=== PATIENT | male | born 1950 | race Caucasian/White ===

== ENCOUNTER 2016-09-26 09:24 | Emergency (ER) | payer BC ==
[2016-09-26 10:25] LABS: BASO # 0.1 K/mm3 (0.0-0.2); BASO % 3.4 % (0.0-1.0); EOS % 1.6 % (0.0-3.0); LARGE UNSTAINED CELL # 0.1 K/mm3 (0.0-0.4); LARGE UNSTAINED CELL % 3.9 % (0.0-4.0); LYMPH # 0.4 K/mm3 (1.5-4.5); LYMPH % 10.6 % (24.0-44.0); MEAN CORPUSCULAR HEMOGLOBIN 30.7 pg (27.0-33.0); MEAN CORPUSCULAR HGB CONC 33.5 g/dl (32.0-36.5); MEAN CORPUSCULAR VOLUME 91.7 fl (80.0-96.0); MONO # 0.4 K/mm3 (0.0-0.8); MONO % 13.1 % (0.0-5.0); NEUTROPHILS % 67.4 % (36.0-66.0); PLATELET COUNT, AUTOMATED 330 k/mm3 (150-450); RED CELL DISTRIBUTION WIDTH 14.1 % (11.5-14.5)
[2016-09-26 10:47] LABS: ANION GAP 9 MEQ/L (8-16); BLOOD UREA NITROGEN 14 MG/DL (7-18); CARBON DIOXIDE LEVEL 26 MEQ/L (21-32); CHLORIDE LEVEL 104 MEQ/L (98-107); CREATININE FOR GFR 0.79 MG/DL (0.70-1.30); GLOMERULAR FILTRATION RATE > 60.0 (>49); GLUCOSE, FASTING 116 MG/DL (80-110); POTASSIUM SERUM 3.9 MEQ/L (3.5-5.1); SODIUM LEVEL 139 MEQ/L (136-145)
--- NOTE | 2016-09-26 11:04 | REP ---
Chest two views HISTORY: Cough Comparison: 12/10/2008 The lungs are clear. The heart is normal in size. The pulmonary vasculature is normal in appearance. The bony structure is intact. IMPRESSION: No acute disease. Signed by Vasquez Dinh MD 09/26/2016 10:55 A
--- NOTE | 2016-09-26 11:26 | REP ---
RIGHT ARM VENOUS DOPPLER: 09/26/2016 INDICATION: Recent IV in right arm, exclude DVT. Color flow Doppler spectral wave Doppler and grayscale imaging were used to evaluate the deep veins at the right subclavian, axillary, basilic, paired brachial and cephalic venous levels, with and without compression. There is no visualized deep venous thrombosis within the right upper extremity. Superficial thrombus is seen at an area of erythema within the right forearm . This long segmental area of superficial vein demonstrated absence of color flow/perfusion , and was noncompressible. IMPRESSION: 1. Superficial venous thrombosis is noted in long segment of superficial vein within the right forearm within the area of erythema. 2. The deep veins within the right upper extremity are without evidence of deep venous thrombosis. Signed by Gabrielle Phelps MD 09/26/2016 09:59 P
--- NOTE | 2016-09-26 11:51 | EDDOCDS ---
Nurse's Notes [facility] Name: Arcadio Corley Age: 66 yrs Sex: Male : 1950 Arrival Date: 09/26/2016 Time: 09:24 Bed I7 / 29 Private MD: Edward Marrufo Diagnosis: Acute sinusitis, unspecified;Acute embolism and thrombosis of other specified veins-superficial vein right forearm Presentation: 09/26 09:34 Presenting complaint: Patient states: Chemo last week reports feeling ill since Saturday, mlb1 body aches productive cough and sinus pressure also reports bruising discoloring to veins in right arm denies pain. Adult Sepsis Screening: The patient does not have new or worsening altered mentation. Patient's respiratory rate is less than 22. Systolic blood pressure is greater than 100. Patient has a qSOFA score of 0- Negative Sepsis Screen. Suicide/Homicide risk assessment- the patient denies having any suicidal and/or homicidal ideations and does not present with any other emotional, behavioral or mental health complaints. Status: Patient is not a dean of student services or dependent. Transition of care: patient was not received from another setting of care. 09:34 Acuity: VALERIA Level 3 mlb1 09:34 Method Of Arrival: Walkin/Carried/Asstd mlb1 Triage Assessment: 09:37 General: Appears in no apparent distress, Behavior is appropriate for age, cooperative. mlb1 Pain: Denies pain. Pt Declines HIV testing. Historical: - Allergies: no known allergies; - Home Meds: 1. Lovaza 1 gram oral cap 4 caps once daily 2. simvastatin 10 mg oral tab once daily 3. Benicar oral 50 mg oral once daily - PMHx: High Cholesterol; Cancer, Prostate; Hypertension; - PSHx: left shoulder; Sinus Surgery; Orthopedic Surgery; - Social history: Smoking status: Patient states former smoker of tobacco. No barriers to communication noted, The patient speaks fluent Hebrew, Speaks appropriately for age. - Family history: Not pertinent. - : The pt / caregiver states he / she is not on anticoagulants. Home medication list is obtained from the patient. - Exposure Risk Screening:: None identified. Screenin:46 Screening information is obtained from the patient. Fall risk: No risks identified. dsf Assistance ADL's: requires no assistance with activities of daily living. Abuse/DV Screen: The patient / caregiver reports he/she is: not in a situation that causes fear, pain or injury. Nutritional screening: No deficits noted. Advance Directives: Currently, there is no health care proxy. home support is adequate. Assessment: 10:11 Adult Sepsis Screening: The patient does not have new or worsening altered mentation. dsf Patient's respiratory rate is less than 22. Systolic blood pressure is greater than 100. Patient has a qSOFA score of 0- Negative Sepsis Screen. General: Appears in no apparent distress, Behavior is appropriate for age, cooperative. Pain: Denies pain. Neurological: Level of Consciousness is awake, alert, Oriented to person, place, time. Cardiovascular: No deficits noted. Respiratory: No deficits noted. Derm: Skin is pink, warm & dry. purplish reddish chow going up patients right forearm. pt denies pain or swelling. Musculoskeletal: Circulation, motion, and sensation intact. 11:08 General: Appears in no apparent distress, comfortable, Behavior is appropriate for age, kc3 cooperative. Pain: Denies pain. Neurological: Level of Consciousness is awake, alert, obeys commands, Oriented to person, place, time. Respiratory: Respiratory effort is even, unlabored, Respiratory pattern is regular, symmetrical. Derm: Skin is pink, warm & dry. 11:46 General: Appears in no apparent distress, Behavior is appropriate for age, cooperative. dsf Pain: Denies pain. Neurological: Level of Consciousness is awake, alert. Cardiovascular: Capillary refill < 3 seconds. Respiratory: Airway is patent Respiratory effort is even, unlabored, Respiratory pattern is regular, symmetrical. Derm: Skin is pink, warm & dry. Vital Signs: 09:26 BP 142 / 62; Pulse 90; Resp 18 S; Temp 96.7(O); Pulse Ox 98% on R/A; Weight 94.8 kg dd6 (R); Height 6 ft. 0 in. (182.88 cm) (R); 11:48 Pulse 87; Resp 18; Temp 98.3(O); Pulse Ox 98% on R/A; Pain 0/10; dsf 11:50 BP 100 / 61 (man/); dsf 09:26 Body Mass Index 28.35 (94.80 kg, 182.88 cm) dd6 Vitals: 09:26 Log In Time: September 26, 2016 at 09:24. RN notified that patient meets Red Flag dd6 criteria. ED Course: 09:26 Patient visited by David Escobedo PCA. dd6 09:26 Edward Marrufo PA-C is Private Physician. dd6 09:26 Patient moved to Waiting dd6 09:34 Patient visited by Juan Rocha RN. mlb1 09:35 Triage Initiated mlb1 09:39 Patient visited by Juan Rocha RN. mlb1 09:41 [facility] Baptiste [facility] dt4 09:41 Lyric Ernst MD is Attending Physician. dt4 09:41 Patient visited by Milena Baptiste PA-C. dt4 09:41 Patient moved to I dt4 10:07 Patient moved to [facility] br3 10:11 -Blood Culture Sent. dsf 10:11 Lactic Acid (Casarez tube on ice) Sent. dsf 10:11 Basic Metabolic Profile Sent. dsf 10:11 CBC with Diff Sent. dsf 10:12 Patient visited by Melissa Ching RN. dsf 10:12 Inserted saline lock: 20 gauge in left hand The patient tolerated the procedure well. dsf 10:34 Patient moved to br3 10:36 BLOOD CULTURES Sent. dsf 11:08 Patient visited by Gini Villarreal RN. kc3 11:08 -Influenza A&B Rapid Antigen - Nose Sent. kc3 11:10 Chest, 2 View (pa\E\lat) Returned. EDMS 11:46 Discontinued lock intact, bleeding controlled, pressure dressing applied, No dsf redness/swelling at site. No procedures done that require assistance. 11:47 The patient / caregiver is instructed regarding the plan of care and ED course. dsf Order Results: Lab Order: CBC with Diff; SPEC'M 09/26/16 09:57 Test: WHITE BLOOD COUNT; Value: 3.0; Range: 4.0-10.0; Abnormal: Below low normal; Units: K/mm3; Status: F Test: RED BLOOD COUNT; Value: 4.01; Range: 4.30-6.10; Abnormal: Below low normal; Units: M/mm3; Status: F Test: HEMOGLOBIN; Value: 12.3; Range: 14.0-18.0; Abnormal: Below low normal; Units: g/dl; Status: F Test: HEMATOCRIT; Value: 36.7; Range: 42.0-52.0; Abnormal: Below low normal; Units: %; Status: F Test: MEAN CORPUSCULAR VOLUME; Value: 91.7; Range: 80.0-96.0; Units: fl; Status: F Test: MEAN CORPUSCULAR HEMOGLOBIN; Value: 30.7; Range: 27.0-33.0; Units: pg; Status: F Test: MEAN CORPUSCULAR HGB CONC; Value: 33.5; Range: 32.0-36.5; Units: g/dl; Status: F Test: RED CELL DISTRIBUTION WIDTH; Value: 14.1; Range: 11.5-14.5; Units: %; Status: F Test: PLATELET COUNT, AUTOMATED; Value: 330; Range: 150-450; Units: k/mm3; Status: F Test: NEUTROPHILS %; Value: 67.4; Range: 36.0-66.0; Abnormal: Above high normal; Units: %; Status: F Test: LYMPH %; Value: 10.6; Range: 24.0-44.0; Abnormal: Below low normal; Units: %; Status: F Test: MONO %; Value: 13.1; Range: 0.0-5.0; Abnormal: Above high normal; Units: %; Status: F Test: EOS %; Value: 1.6; Range: 0.0-3.0; Units: %; Status: F Test: BASO %; Value: 3.4; Range: 0.0-1.0; Abnormal: Above high normal; Units: %; Status: F Test: LARGE UNSTAINED CELL %; Value: 3.9; Range: 0.0-4.0; Units: %; Status: F Test: NEUTROPHILS #; Value: 2.0; Range: 1.8-7.7; Units: K/mm3; Status: F Test: LYMPH #; Value: 0.4; Range: 1.5-4.5; Abnormal: Below low normal; Units: K/mm3; Status: F Test: MONO #; Value: 0.4; Range: 0.0-0.8; Units: K/mm3; Status: F Test: EOS #; Value: 0.0; Range: 0.0-0.50; Units: K/mm3; Status: F Test: BASO #; Value: 0.1; Range: 0.0-0.2; Units: K/mm3; Status: F Test: LARGE UNSTAINED CELL #; Value: 0.1; Range: 0.0-0.4; Units: K/mm3; Status: F Lab Order: Basic Metabolic Profile; SPEC'M 09/26/16 09:57 Test: GLUCOSE, FASTING; Value: 116; Range: 80-110; Abnormal: Above high normal; Units: MG/DL; Status: F Test: BLOOD UREA NITROGEN; Value: 14; Range: 7-18; Units: MG/DL; Status: F Test: CREATININE FOR GFR; Value: 0.79; Range: 0.70-1.30; Units: MG/DL; Status: F Test: GLOMERULAR FILTRATION RATE; Value: > 60.0; Range: >49; Status: F Test: SODIUM LEVEL; Value: 139; Range: 136-145; Units: MEQ/L; Status: F Test: POTASSIUM SERUM; Value: 3.9; Range: 3.5-5.1; Units: MEQ/L; Status: F Test: CHLORIDE LEVEL; Value: 104; Range: 98-107; Units: MEQ/L; Status: F Test: CARBON DIOXIDE LEVEL; Value: 26; Range: 21-32; Units: MEQ/L; Status: F Test: ANION GAP; Value: 9; Range: 8-16; Units: MEQ/L; Status: F Test: CALCIUM LEVEL; Value: 9.0; Range: 8.8-10.2; Units: MG/DL; Status: F Test Note: ; Units are mL/min/1.73 m2 Chronic Kidney Disease Staging per NKF: Stage I & II GFR >=60 Normal to Mildly Decreased Stage III GFR 30-59 Moderately Decreased Stage IV GFR 15-29 Severely Decreased Stage V GFR <15 Very Little GFR Left ESRD GFR <15 on ARTIST'S REPRESENTATIVE Lab Order: Lactic Acid (Casarez tube on ice); SPEC'09/26/16 09:57 Test: LACTIC ACID LEVEL, LACTATE; Value: 1.0; Range: 0.4-2.0; Units: MMOL/L; Status: F Lab Order: -Influenza A&B Rapid Antigen - Nose; SPEC'M 09/26/16 11:05 Test: INFLUENZA A RAPID SCR by ICA; Value: INFLUENZA A RESULTS NEGATIVE; Status: F Test: INFLUENZA A RAPID SCR by ICA; Value: Comments:; Status: F Test: INFLUENZA B RAPID SCR by ICA; Value: INFLUENZA B RESULTS NEGATIVE; Status: F Test Note: ; The Influenza test is a direct rapid immunoassay for the qualitative detection of Influenza viral antigen. Cell culture (Viral Culture) testing should be considered to confirm NEGATIVE results and to assist in detecting other viruses that can provide similar clinical symptoms. Please contact the lab within 24 hours ([phone]) if confirmatory testing is desired. Radiology Order: Chest, 2 View (pa\E\lat) Test: Chest, 2 View (pa\E\lat) REASON FOR EXAMINATION: body aches; Chest two views; ; HISTORY: Cough; ; Comparison: 12/10/2008; ; The lungs are clear. The heart is normal in size. The pulmonary vasculature is; normal in appearance. The bony structure is intact.; ; IMPRESSION: No acute disease.; ; ; Signed by; Vasquez Dinh MD 09/26/2016 10:55 A; Outcome: 11:39 Discharge ordered by Provider. dt4 11:47 Discharge Assessment: Patient awake, alert and oriented x 3. No cognitive and/or dsf functional deficits noted. Patient verbalized understanding of disposition instructions. patient administered narcotics - no. The following High Risk Discharge criteria are identified: None. Discharged to home ambulatory. Condition: stable. Discharge instructions given to patient, Instructed on discharge instructions, follow up and referral plans. medication usage, Demonstrated understanding of instructions, medications, Pt was receptive of discharge instructions/ teaching. Prescriptions given X 1. Ultrasound Study completed. Property sent home with patient. 11:51 Patient left the ED. dsf Signatures: Dispatcher [employer] EDMS Juan Rocha RN RN mlb1 David Escobedo, BRADLY FOLEY ARTIST dd6 Tayler Haines br3 Melissa Ching,RN RN dsf Milena Baptiste, PA-C PA-C dt4 Gini VillarrealRN RN kc3 Corrections: (The following items were deleted from the chart) 09:39 09:34 Presenting complaint: Patient states: Chemo last week reports feeling ill since mlb1 Saturday, body aches productive cough and sinus pressure mlb1 MTDD
--- NOTE | 2016-09-26 11:51 | EDDOCDS ---
Physician Documentation [facility] Name: Arcadio Corley Age: 66 yrs Sex: Male : 1950 Arrival Date: 09/26/2016 Time: 09:24 Bed I7 / 29 Private MD: Edward Marrufo Disposition: 09/26/16 11:39 Discharged to Home/Self Care. Impression: Acute sinusitis, unspecified, Acute embolism and thrombosis of other specified veins - superficial vein right forearm. - Condition is Stable. - Discharge Instructions: Sinusitis, Adult, Venous Thromboembolism. - Prescriptions for Augmentin 875- 125 mg Oral Tablet - take 1 tablet by ORAL route every 12 hours for 10 days; 20 tablet. - Medication Reconciliation, Local Pharmacy Hours form. - Follow up: Emergency Department; When: As needed; Reason: Worsening of conditions. Follow up: Private Physician; When: 2 - 3 days; Reason: Wound/Symptom Recheck, Recheck today's complaints, Continuance of care. - Problem is new. - Symptoms are unchanged. - Notes: YOU HAVE A SUPERFICIAL CLOT IN THE RIGHT FOREARM. YOU DOT NOT HAVE ANY DEEP VEIN CLOTS, WHICH CAN BE FATAL. THE SUPERFICIAL CLOTS ARE TYPICALLY TREATED WITH WARM COMPRESSES (A WARM WET WASH CLOTH TO THIS AREA A FEW TIMES A DAY FOR 10-15 MINUTES AT A TIME), AND ASPIRIN. PLEASE FOLLOW UP WITH YOUR PRIMARY CARE PROVIDER IN THE NEXT FEW DAYS TO RECHECK YOUR SYMPTOMS. RETURN TO THE ER WITH ANY WORSENING SYMPTOMS. Historical: - Allergies: no known allergies; - Home Meds: 1. Lovaza 1 gram oral cap 4 caps once daily 2. simvastatin 10 mg oral tab once daily 3. Benicar oral 50 mg oral once daily - PMHx: High Cholesterol; Cancer, Prostate; Hypertension; - PSHx: left shoulder; Sinus Surgery; Orthopedic Surgery; - Social history: Smoking status: Patient states former smoker of tobacco. No barriers to communication noted, The patient speaks fluent Bengali, Speaks appropriately for age. - Family history: Not pertinent. - : The pt / caregiver states he / she is not on anticoagulants. Home medication list is obtained from the patient. - Exposure Risk Screening:: None identified. Vital Signs: 09/26 09:26 BP 142 / 62; Pulse 90; Resp 18 S; Temp 96.7(O); Pulse Ox 98% on R/A; Weight 94.8 kg / dd6 209 lbs (R); Height 6 ft. 0 in. (182.88 cm) (R); 11:48 Pulse 87; Resp 18; Temp 98.3(O); Pulse Ox 98% on R/A; Pain 0/10; dsf 11:50 BP 100 / 61 (man/); dsf 09:26 Body Mass Index 28.35 (94.80 kg, 182.88 cm) dd6 MDM: 09:53 -Blood Culture (Adults Only), peripheral from different site, or from device/port/PICC dt4 etc. if present ordered. 09:53 IV Saline Lock ordered. dt4 09:54 US Upper Extremity R/O DVT Ordered. EDMS 09:54 Chest, 2 View (pa\E\lat) Ordered. EDMS 09:54 CBC with Diff Ordered. EDMS 09:54 Basic Metabolic Profile Ordered. EDMS 09:54 Lactic Acid (Casarez tube on ice) Ordered. EDMS 09:54 -Blood Culture Ordered. EDMS 10:03 -Blood Culture (Adults Only), peripheral from different site, or from device/port/PICC ct3 etc. if present complete. 10:14 BLOOD CULTURES Ordered. EDMS 10:59 Obtain sample by nasopharyngeal swab ordered. dt4 11:00 -Influenza A&B Rapid Antigen - Nose Ordered. EDMS 11:11 Financial registration complete. lg Signatures: Dispatcher [employer] EDMS Juancarlos Zarate, Reg Reg lg Juan Rocha, RN RN mlb1 Maddi Justice, SUPERINTENDENT CONSTRUCTION SUPERINTENDENT CONSTRUCTION ct3 Melissa Ching RN RN dsf Milena Baptiste, PA-C PA-C dt4 MTDD
--- NOTE | 2016-09-28 12:51 | EDDOCDS ---
Physician Documentation [facility] Name: Arcadio Corley Age: 66 yrs Sex: Male : 1950 Arrival Date: 09/26/2016 Time: 09:24 Bed I7 / 29 Private MD: Edward Marrufo Disposition: 09/26/16 11:39 Discharged to Home/Self Care. Impression: Acute sinusitis, unspecified, Acute embolism and thrombosis of other specified veins - superficial vein right forearm. - Condition is Stable. - Discharge Instructions: Sinusitis, Adult, Venous Thromboembolism. - Prescriptions for Augmentin 875- 125 mg Oral Tablet - take 1 tablet by ORAL route every 12 hours for 10 days; 20 tablet. - Medication Reconciliation, Local Pharmacy Hours form. - Follow up: Emergency Department; When: As needed; Reason: Worsening of conditions. Follow up: Private Physician; When: 2 - 3 days; Reason: Wound/Symptom Recheck, Recheck today's complaints, Continuance of care. - Problem is new. - Symptoms are unchanged. - Notes: YOU HAVE A SUPERFICIAL CLOT IN THE RIGHT FOREARM. YOU DOT NOT HAVE ANY DEEP VEIN CLOTS, WHICH CAN BE FATAL. THE SUPERFICIAL CLOTS ARE TYPICALLY TREATED WITH WARM COMPRESSES (A WARM WET WASH CLOTH TO THIS AREA A FEW TIMES A DAY FOR 10-15 MINUTES AT A TIME), AND ASPIRIN. PLEASE FOLLOW UP WITH YOUR PRIMARY CARE PROVIDER IN THE NEXT FEW DAYS TO RECHECK YOUR SYMPTOMS. RETURN TO THE ER WITH ANY WORSENING SYMPTOMS. Historical: - Allergies: no known allergies; - Home Meds: 1. Lovaza 1 gram oral cap 4 caps once daily 2. simvastatin 10 mg oral tab once daily 3. Benicar oral 50 mg oral once daily - PMHx: High Cholesterol; Cancer, Prostate; Hypertension; - PSHx: left shoulder; Sinus Surgery; Orthopedic Surgery; - Social history: Smoking status: Patient states former smoker of tobacco. No barriers to communication noted, The patient speaks fluent Romansh, Speaks appropriately for age. - Family history: Not pertinent. - : The pt / caregiver states he / she is not on anticoagulants. Home medication list is obtained from the patient. - Exposure Risk Screening:: None identified. Vital Signs: 09/26 09:26 BP 142 / 62; Pulse 90; Resp 18 S; Temp 96.7(O); Pulse Ox 98% on R/A; Weight 94.8 kg / dd6 209 lbs (R); Height 6 ft. 0 in. (182.88 cm) (R); 11:48 Pulse 87; Resp 18; Temp 98.3(O); Pulse Ox 98% on R/A; Pain 0/10; dsf 11:50 BP 100 / 61 (man/); dsf 09:26 Body Mass Index 28.35 (94.80 kg, 182.88 cm) dd6 MDM: 09:53 -Blood Culture (Adults Only), peripheral from different site, or from device/port/PICC dt4 etc. if present ordered. 09:53 IV Saline Lock ordered. dt4 09:54 US Upper Extremity R/O DVT Ordered. EDMS 09:54 Chest, 2 View (pa\E\lat) Ordered. EDMS 09:54 CBC with Diff Ordered. EDMS 09:54 Basic Metabolic Profile Ordered. EDMS 09:54 Lactic Acid (Casarez tube on ice) Ordered. EDMS 09:54 -Blood Culture Ordered. EDMS 10:03 -Blood Culture (Adults Only), peripheral from different site, or from device/port/PICC ct3 etc. if present complete. 10:14 BLOOD CULTURES Ordered. EDMS 10:59 Obtain sample by nasopharyngeal swab ordered. dt4 11:00 -Influenza A&B Rapid Antigen - Nose Ordered. EDMS 11:11 Financial registration complete. lg 12:12 [facility] Payment Agreement was scanned into [employer] and attached to record. lg 15:04 T-Sheet-- Draft Copy was scanned into [employer] and attached to record. gb 15:04 Radiology Report was scanned into [employer] and attached to record. gb Signatures: Dispatcher [employer] EDMS Brandi Rodriguez, Reg Reg gb Juancarlos Zarate, Reg Reg lg Juan Rocha RN RN mlb1 Maddi Justice, BLOOMING MILL SUPERVISOR BLOOMING MILL SUPERVISOR ct3 Melissa ChingRN RN dsf Milena Baptiste, IRAJ PA-C dt4 The chart was reviewed and I authenticate all verbal orders and agree with the evaluation and treatment provided.Attachments: 12:12 [facility] Payment Agreement lg 15:04 T-Sheet-- Draft Copy gb Chart Complete MTDD
--- NOTE | 2016-09-28 12:51 | EDDOCDS ---
Nurse's Notes [facility] Name: Arcadio Corley Age: 66 yrs Sex: Male : 1950 Arrival Date: 09/26/2016 Time: 09:24 Bed I7 / 29 Private MD: Edward Marrufo Diagnosis: Acute sinusitis, unspecified;Acute embolism and thrombosis of other specified veins-superficial vein right forearm Presentation: 09/26 09:34 Presenting complaint: Patient states: Chemo last week reports feeling ill since Saturday, mlb1 body aches productive cough and sinus pressure also reports bruising discoloring to veins in right arm denies pain. Adult Sepsis Screening: The patient does not have new or worsening altered mentation. Patient's respiratory rate is less than 22. Systolic blood pressure is greater than 100. Patient has a qSOFA score of 0- Negative Sepsis Screen. Suicide/Homicide risk assessment- the patient denies having any suicidal and/or homicidal ideations and does not present with any other emotional, behavioral or mental health complaints. 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 Transition of care: patient was not received from another setting of care. 09:34 Acuity: VALERIA Level 3 mlb1 09:34 Method Of Arrival: Walkin/Carried/Asstd mlb1 Triage Assessment: 09:37 General: Appears in no apparent distress, Behavior is appropriate for age, cooperative. mlb1 Pain: Denies pain. Pt Declines HIV testing. Historical: - Allergies: no known allergies; - Home Meds: 1. Lovaza 1 gram oral cap 4 caps once daily 2. simvastatin 10 mg oral tab once daily 3. Benicar oral 50 mg oral once daily - PMHx: High Cholesterol; Cancer, Prostate; Hypertension; - PSHx: left shoulder; Sinus Surgery; Orthopedic Surgery; - Social history: Smoking status: Patient states former smoker of tobacco. No barriers to communication noted, The patient speaks fluent Swedish, Speaks appropriately for age. - Family history: Not pertinent. - : The pt / caregiver states he / she is not on anticoagulants. Home medication list is obtained from the patient. - Exposure Risk Screening:: None identified. Screenin:46 Screening information is obtained from the patient. Fall risk: No risks identified. dsf Assistance ADL's: requires no assistance with activities of daily living. Abuse/DV Screen: The patient / caregiver reports he/she is: not in a situation that causes fear, pain or injury. Nutritional screening: No deficits noted. Advance Directives: Currently, there is no health care proxy. home support is adequate. Assessment: 10:11 Adult Sepsis Screening: The patient does not have new or worsening altered mentation. dsf Patient's respiratory rate is less than 22. Systolic blood pressure is greater than 100. Patient has a qSOFA score of 0- Negative Sepsis Screen. General: Appears in no apparent distress, Behavior is appropriate for age, cooperative. Pain: Denies pain. Neurological: Level of Consciousness is awake, alert, Oriented to person, place, time. Cardiovascular: No deficits noted. Respiratory: No deficits noted. Derm: Skin is pink, warm & dry. purplish reddish chow going up patients right forearm. pt denies pain or swelling. Musculoskeletal: Circulation, motion, and sensation intact. 11:08 General: Appears in no apparent distress, comfortable, Behavior is appropriate for age, kc3 cooperative. Pain: Denies pain. Neurological: Level of Consciousness is awake, alert, obeys commands, Oriented to person, place, time. Respiratory: Respiratory effort is even, unlabored, Respiratory pattern is regular, symmetrical. Derm: Skin is pink, warm & dry. 11:46 General: Appears in no apparent distress, Behavior is appropriate for age, cooperative. dsf Pain: Denies pain. Neurological: Level of Consciousness is awake, alert. Cardiovascular: Capillary refill < 3 seconds. Respiratory: Airway is patent Respiratory effort is even, unlabored, Respiratory pattern is regular, symmetrical. Derm: Skin is pink, warm & dry. Vital Signs: 09:26 BP 142 / 62; Pulse 90; Resp 18 S; Temp 96.7(O); Pulse Ox 98% on R/A; Weight 94.8 kg dd6 (R); Height 6 ft. 0 in. (182.88 cm) (R); 11:48 Pulse 87; Resp 18; Temp 98.3(O); Pulse Ox 98% on R/A; Pain 0/10; dsf 11:50 BP 100 / 61 (man/); dsf 09:26 Body Mass Index 28.35 (94.80 kg, 182.88 cm) dd6 Vitals: 09:26 Log In Time: September 26, 2016 at 09:24. RN notified that patient meets Red Flag dd6 criteria. ED Course: 09:26 Patient visited by David Escobedo PCA. dd6 09:26 Edward Marrufo PA-C is Private Physician. dd6 09:26 Patient moved to Waiting dd6 09:34 Patient visited by Juan Rocha, FELIPE. mlb1 09:35 Triage Initiated mlb1 09:39 Patient visited by Juan Rocha RN. mlb1 09:41 [facility] dt4 09:41 Lyric Ernst MD is Attending Physician. dt4 09:41 Patient visited by Milena Baptiste PA-C. dt4 09:41 Patient moved to I dt4 10:07 Patient moved to [facility] [place] br3 10:11 -Blood Culture Sent. dsf 10:11 Lactic Acid (Casarez tube on ice) Sent. dsf 10:11 Basic Metabolic Profile Sent. dsf 10:11 CBC with Diff Sent. dsf 10:12 Patient visited by Melissa Ching RN. dsf 10:12 Inserted saline lock: 20 gauge in left hand The patient tolerated the procedure well. dsf 10:34 Patient moved to br3 10:36 BLOOD CULTURES Sent. dsf 11:08 Patient visited by Gini Villarreal RN. kc3 11:08 -Influenza A&B Rapid Antigen - Nose Sent. kc3 11:10 Chest, 2 View (pa\E\lat) Returned. EDMS 11:46 Discontinued lock intact, bleeding controlled, pressure dressing applied, No dsf redness/swelling at site. No procedures done that require assistance. 11:47 The patient / caregiver is instructed regarding the plan of care and ED course. dsf 11:53 US Upper Extremity R/O DVT Returned. EDMS 12:12 [facility] Payment Agreement was scanned into [employer] and attached to record. lg 15:04 T-Sheet-- Draft Copy was scanned into [employer] and attached to record. gb 15:04 Radiology Report was scanned into [employer] and attached to record. gb Order Results: Lab Order: CBC with Diff; SPEC'M 09/26/16 09:57 Test: WHITE BLOOD COUNT; Value: 3.0; Range: 4.0-10.0; Abnormal: Below low normal; Units: K/mm3; Status: F Test: RED BLOOD COUNT; Value: 4.01; Range: 4.30-6.10; Abnormal: Below low normal; Units: M/mm3; Status: F Test: HEMOGLOBIN; Value: 12.3; Range: 14.0-18.0; Abnormal: Below low normal; Units: g/dl; Status: F Test: HEMATOCRIT; Value: 36.7; Range: 42.0-52.0; Abnormal: Below low normal; Units: %; Status: F Test: MEAN CORPUSCULAR VOLUME; Value: 91.7; Range: 80.0-96.0; Units: fl; Status: F Test: MEAN CORPUSCULAR HEMOGLOBIN; Value: 30.7; Range: 27.0-33.0; Units: pg; Status: F Test: MEAN CORPUSCULAR HGB CONC; Value: 33.5; Range: 32.0-36.5; Units: g/dl; Status: F Test: RED CELL DISTRIBUTION WIDTH; Value: 14.1; Range: 11.5-14.5; Units: %; Status: F Test: PLATELET COUNT, AUTOMATED; Value: 330; Range: 150-450; Units: k/mm3; Status: F Test: NEUTROPHILS %; Value: 67.4; Range: 36.0-66.0; Abnormal: Above high normal; Units: %; Status: F Test: LYMPH %; Value: 10.6; Range: 24.0-44.0; Abnormal: Below low normal; Units: %; Status: F Test: MONO %; Value: 13.1; Range: 0.0-5.0; Abnormal: Above high normal; Units: %; Status: F Test: EOS %; Value: 1.6; Range: 0.0-3.0; Units: %; Status: F Test: BASO %; Value: 3.4; Range: 0.0-1.0; Abnormal: Above high normal; Units: %; Status: F Test: LARGE UNSTAINED CELL %; Value: 3.9; Range: 0.0-4.0; Units: %; Status: F Test: NEUTROPHILS #; Value: 2.0; Range: 1.8-7.7; Units: K/mm3; Status: F Test: LYMPH #; Value: 0.4; Range: 1.5-4.5; Abnormal: Below low normal; Units: K/mm3; Status: F Test: MONO #; Value: 0.4; Range: 0.0-0.8; Units: K/mm3; Status: F Test: EOS #; Value: 0.0; Range: 0.0-0.50; Units: K/mm3; Status: F Test: BASO #; Value: 0.1; Range: 0.0-0.2; Units: K/mm3; Status: F Test: LARGE UNSTAINED CELL #; Value: 0.1; Range: 0.0-0.4; Units: K/mm3; Status: F Lab Order: Basic Metabolic Profile; [facility] 09/26/16 09:57 Test: GLUCOSE, FASTING; Value: 116; Range: 80-110; Abnormal: Above high normal; Units: MG/DL; Status: F Test: BLOOD UREA NITROGEN; Value: 14; Range: 7-18; Units: MG/DL; Status: F Test: CREATININE FOR GFR; Value: 0.79; Range: 0.70-1.30; Units: MG/DL; Status: F Test: GLOMERULAR FILTRATION RATE; Value: > 60.0; Range: >49; Status: F Test: SODIUM LEVEL; Value: 139; Range: 136-145; Units: MEQ/L; Status: F Test: POTASSIUM SERUM; Value: 3.9; Range: 3.5-5.1; Units: MEQ/L; Status: F Test: CHLORIDE LEVEL; Value: 104; Range: 98-107; Units: MEQ/L; Status: F Test: CARBON DIOXIDE LEVEL; Value: 26; Range: 21-32; Units: MEQ/L; Status: F Test: ANION GAP; Value: 9; Range: 8-16; Units: MEQ/L; Status: F Test: CALCIUM LEVEL; Value: 9.0; Range: 8.8-10.2; Units: MG/DL; Status: F Test Note: ; Units are mL/min/1.73 m2 Chronic Kidney Disease Staging per NKF: Stage I & II GFR >=60 Normal to Mildly Decreased Stage III GFR 30-59 Moderately Decreased Stage IV GFR 15-29 Severely Decreased Stage V GFR <15 Very Little GFR Left ESRD GFR <15 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 All specimens observed; Status: F Test: BLOOD CULTURE; Value: for 5 days. Results final at that time.; Status: F Test: BLOOD CULTURE; Value: No Growth after 48 hours. All Specimens observed; Status: F Test: BLOOD CULTURE; Value: for 7 days. Results final at that time.; Status: F Lab Order: BLOOD CULTURES; SPEC'M 09/26/16 10:35 Test: BLOOD CULTURE; Value: No growth after 24 hours . All specimens observed; Status: F Test: BLOOD CULTURE; Value: for 5 days. Results final at that time.; Status: F Test: BLOOD CULTURE; Value: No Growth after 48 hours. All Specimens observed; Status: F Test: BLOOD CULTURE; Value: for 7 days. Results final at that time.; Status: F Lab Order: -Influenza A&B Rapid Antigen - Nose; SPEC'M 09/26/16 11:05 Test: INFLUENZA A RAPID SCR by ICA; Value: INFLUENZA A RESULTS NEGATIVE; Status: F Test: INFLUENZA A RAPID SCR by ICA; Value: Comments:; Status: F Test: INFLUENZA B RAPID SCR by ICA; Value: INFLUENZA B RESULTS NEGATIVE; Status: F Test Note: ; The Influenza test is a direct rapid immunoassay for the qualitative detection of Influenza viral antigen. Cell culture (Viral Culture) testing should be considered to confirm NEGATIVE results and to assist in detecting other viruses that can provide similar clinical symptoms. Please contact the lab within 24 hours ([phone]) if confirmatory testing is desired. Radiology Order: Chest, 2 View (pa\E\lat) Test: Chest, 2 View (pa\E\lat) REASON FOR EXAMINATION: body aches; Chest two views; ; HISTORY: Cough; ; Comparison: 12/10/2008; ; The lungs are clear. The heart is normal in size. The pulmonary vasculature is; normal in appearance. The bony structure is intact.; ; IMPRESSION: No acute disease.; ; ; Signed by; Vasquez Dinh MD 09/26/2016 10:55 A; Radiology Order: US Upper Extremity R/O DVT Test: US Upper Extremity R/O DVT REASON FOR EXAMINATION: recent iv right arm, ?dvt; RIGHT ARM VENOUS DOPPLER: 09/26/2016; ; INDICATION: Recent IV in right arm, exclude DVT.; ; Color flow Doppler spectral wave Doppler and grayscale imaging were used to; evaluate the deep veins at the right subclavian, axillary, basilic, paired; brachial and cephalic venous levels, with and without compression.; ; There is no visualized deep venous thrombosis within the right upper extremity.; Superficial thrombus is seen at an area of erythema within the right forearm .; This long segmental area of superficial vein demonstrated absence of color; flow/perfusion , and was noncompressible.; ; IMPRESSION: 1. Superficial venous thrombosis is noted in long segment of; superficial vein within the right forearm within the area of erythema.; ; 2. The deep veins within the right upper extremity are without evidence of deep; venous thrombosis.; ; ; Signed by; Gabrielle Phelps MD 09/26/2016 09:59 P; Outcome: 11:39 Discharge ordered by Provider. dt4 11:47 Discharge Assessment: Patient awake, alert and oriented x 3. No cognitive and/or dsf functional deficits noted. Patient verbalized understanding of disposition instructions. patient administered narcotics - no. The following High Risk Discharge criteria are identified: None. Discharged to home ambulatory. Condition: stable. Discharge instructions given to patient, Instructed on discharge instructions, follow up and referral plans. medication usage, Demonstrated understanding of instructions, medications, Pt was receptive of discharge instructions/ teaching. Prescriptions given X 1. Ultrasound Study completed. Property sent home with patient. 11:51 Patient left the ED. dsf Signatures: Dispatcher [employer] EDMS Brandi Rodriguez, Reg Reg gb Juancarlos Zarate, Reg Reg lg Juan Rocha RN RN mlb1 David Escobedo, STILL CLEANER STILL CLEANER dd6 Tayler Haines br3 Melissa Ching RN RN dsf Milena Baptiste, PA-C PA-C dt4 Gini Villarreal,RN RN kc3 Corrections: (The following items were deleted from the chart) 09:39 09:34 Presenting complaint: Patient states: Chemo last week reports feeling ill since mlb1 Saturday, body aches productive cough and sinus pressure mlb1 Chart Complete MTDD
--- NOTE | 2016-09-28 12:51 | EDDOCDS ---
Physician Documentation [facility] Name: Arcadio Corley Age: 66 yrs Sex: Male : 1950 Arrival Date: 09/26/2016 Time: 09:24 Bed I7 / 29 Private MD: Edward Marrufo Disposition: 09/26/16 11:39 Discharged to Home/Self Care. Impression: Acute sinusitis, unspecified, Acute embolism and thrombosis of other specified veins - superficial vein right forearm. - Condition is Stable. - Discharge Instructions: Sinusitis, Adult, Venous Thromboembolism. - Prescriptions for Augmentin 875- 125 mg Oral Tablet - take 1 tablet by ORAL route every 12 hours for 10 days; 20 tablet. - Medication Reconciliation, Local Pharmacy Hours form. - Follow up: Emergency Department; When: As needed; Reason: Worsening of conditions. Follow up: Private Physician; When: 2 - 3 days; Reason: Wound/Symptom Recheck, Recheck today's complaints, Continuance of care. - Problem is new. - Symptoms are unchanged. - Notes: YOU HAVE A SUPERFICIAL CLOT IN THE RIGHT FOREARM. YOU DOT NOT HAVE ANY DEEP VEIN CLOTS, WHICH CAN BE FATAL. THE SUPERFICIAL CLOTS ARE TYPICALLY TREATED WITH WARM COMPRESSES (A WARM WET WASH CLOTH TO THIS AREA A FEW TIMES A DAY FOR 10-15 MINUTES AT A TIME), AND ASPIRIN. PLEASE FOLLOW UP WITH YOUR PRIMARY CARE PROVIDER IN THE NEXT FEW DAYS TO RECHECK YOUR SYMPTOMS. RETURN TO THE ER WITH ANY WORSENING SYMPTOMS. Historical: - Allergies: no known allergies; - Home Meds: 1. Lovaza 1 gram oral cap 4 caps once daily 2. simvastatin 10 mg oral tab once daily 3. Benicar oral 50 mg oral once daily - PMHx: High Cholesterol; Cancer, Prostate; Hypertension; - PSHx: left shoulder; Sinus Surgery; Orthopedic Surgery; - Social history: Smoking status: Patient states former smoker of tobacco. No barriers to communication noted, The patient speaks fluent Chinese, Speaks appropriately for age. - Family history: Not pertinent. - : The pt / caregiver states he / she is not on anticoagulants. Home medication list is obtained from the patient. - Exposure Risk Screening:: None identified. Vital Signs: 09/26 09:26 BP 142 / 62; Pulse 90; Resp 18 S; Temp 96.7(O); Pulse Ox 98% on R/A; Weight 94.8 kg / dd6 209 lbs (R); Height 6 ft. 0 in. (182.88 cm) (R); 11:48 Pulse 87; Resp 18; Temp 98.3(O); Pulse Ox 98% on R/A; Pain 0/10; dsf 11:50 BP 100 / 61 (man/); dsf 09:26 Body Mass Index 28.35 (94.80 kg, 182.88 cm) dd6 MDM: 09:53 -Blood Culture (Adults Only), peripheral from different site, or from device/port/PICC dt4 etc. if present ordered. 09:53 IV Saline Lock ordered. dt4 09:54 US Upper Extremity R/O DVT Ordered. EDMS 09:54 Chest, 2 View (pa\E\lat) Ordered. EDMS 09:54 CBC with Diff Ordered. EDMS 09:54 Basic Metabolic Profile Ordered. EDMS 09:54 Lactic Acid (Casarez tube on ice) Ordered. EDMS 09:54 -Blood Culture Ordered. EDMS 10:03 -Blood Culture (Adults Only), peripheral from different site, or from device/port/PICC ct3 etc. if present complete. 10:14 BLOOD CULTURES Ordered. EDMS 10:59 Obtain sample by nasopharyngeal swab ordered. dt4 11:00 -Influenza A&B Rapid Antigen - Nose Ordered. EDMS 11:11 Financial registration complete. lg 12:12 [facility] Payment Agreement was scanned into [employer] and attached to record. lg 15:04 T-Sheet-- Draft Copy was scanned into [employer] and attached to record. gb 15:04 Radiology Report was scanned into [employer] and attached to record. gb Signatures: [employer]patcher [employer] EDMS Brandi Rodriguez, Reg Reg gb Juancarlos Zarate, Reg Reg lg Juan Rocha RN RN mlb1 Maddi Justice, HIDE HOUSE SUPERVISOR HIDE HOUSE SUPERVISOR ct3 Melissa ChingRN RN dsf Milena Baptiste, IRAJ PA-C dt4 The chart was reviewed and I authenticate all verbal orders and agree with the evaluation and treatment provided.Attachments: 12:12 [facility] Payment Agreement lg 15:04 T-Sheet-- Draft Copy gb Chart Complete MTDD
== END 2016-09-26 11:51 | disposition home or self-care (01) ==
LOC: M ED 09:24
DX: I82.611 Acute embolism and thrombosis of superficial veins of right upper extremity (principal); J01.90 Acute sinusitis, unspecified; I10 Essential (primary) hypertension; E78.00 Pure hypercholesterolemia, unspecified; Z85.46 Personal history of malignant neoplasm of prostate; Z79.899 Other long term (current) drug therapy; Z87.891 Personal history of nicotine dependence

== ENCOUNTER → 2016-12-11 | Outpatient (REF) | payer BC ==
[2016-12-11 18:44] LABS: ALBUMIN 3.7 GM/DL (3.2-5.2); ALBUMIN/GLOBULIN RATIO 1.48 (1.00-1.93); ALKALINE PHOSPHATASE 49 U/L (45-117); ALT/SGPT 15 U/L (12-78); ANION GAP 6 MEQ/L (8-16); AST/SGOT 16 U/L (15-37); BILIRUBIN,TOTAL 0.4 MG/DL (0.2-1.0); BLOOD UREA NITROGEN 15 MG/DL (7-18); CARBON DIOXIDE LEVEL 29 MEQ/L (21-32); CHLORIDE LEVEL 106 MEQ/L (98-107); CHOLESTEROL LEVEL 171 MG/DL (<200); CREATININE FOR GFR 0.72 MG/DL (0.70-1.30); GLOMERULAR FILTRATION RATE > 60.0 (>49); GLUCOSE, FASTING 114 MG/DL (80-110); SODIUM LEVEL 141 MEQ/L (136-145); TOTAL PROTEIN 6.2 GM/DL (6.4-8.2); TRIGLYCERIDES LEVEL 137 MG/DL (<150)
== END ==
LOC: M LAB REF 16:20
PROVIDERS: ATTEND Physician Assistant
DX: R73.09 Other abnormal glucose (principal); E78.4 Other hyperlipidemia; I10 Essential (primary) hypertension

== ENCOUNTER → 2017-01-21 | Outpatient (REF) | payer BC ==
[2017-01-21 19:26] LABS: BASO % 0.7 % (0.0-1.0); EOS # 0.3 K/mm3 (0.0-0.50); EOS % 4.5 % (0.0-3.0); LARGE UNSTAINED CELL % 0.7 % (0.0-4.0); LYMPH # 1.2 K/mm3 (1.5-4.5); LYMPH % 18.9 % (24.0-44.0); MEAN CORPUSCULAR HEMOGLOBIN 30.2 pg (27.0-33.0); MEAN CORPUSCULAR HGB CONC 32.9 g/dl (32.0-36.5); MEAN CORPUSCULAR VOLUME 91.8 fl (80.0-96.0); MONO # 0.4 K/mm3 (0.0-0.8); MONO % 6.4 % (0.0-5.0); NEUTROPHILS # 4.1 K/mm3 (1.8-7.7); NEUTROPHILS % 68.8 % (36.0-66.0); PLATELET COUNT, AUTOMATED 341 k/mm3 (150-450); RED CELL DISTRIBUTION WIDTH 13.8 % (11.5-14.5)
[2017-01-21 20:08] LABS: ALBUMIN 3.9 GM/DL (3.2-5.2); ALBUMIN/GLOBULIN RATIO 1.34 (1.00-1.93); ALKALINE PHOSPHATASE 56 U/L (45-117); ALT/SGPT 16 U/L (12-78); ANION GAP 7 MEQ/L (8-16); AST/SGOT 18 U/L (15-37); BILIRUBIN,TOTAL 0.3 MG/DL (0.2-1.0); BLOOD UREA NITROGEN 15 MG/DL (7-18); CALCIUM LEVEL 9.5 MG/DL (8.8-10.2); CARBON DIOXIDE LEVEL 30 MEQ/L (21-32); CHLORIDE LEVEL 103 MEQ/L (98-107); CREATININE FOR GFR 0.78 MG/DL (0.70-1.30); GLOMERULAR FILTRATION RATE > 60.0 (>49); GLUCOSE, FASTING 100 MG/DL (80-110); POTASSIUM SERUM 4.3 MEQ/L (3.5-5.1); SODIUM LEVEL 140 MEQ/L (136-145); TOTAL PROTEIN 6.8 GM/DL (6.4-8.2)
== END ==
LOC: M LAB REF 16:22
PROVIDERS: ATTEND Nurse Practitioner Family
DX: C61 Malignant neoplasm of prostate (principal)

== ENCOUNTER → 2017-01-23 | Outpatient (REF) | payer BC | LOC: M LAB REF 16:25 | PROVIDERS: ATTEND Radiology Therapeutic Radiology | DX: C61 Malignant neoplasm of prostate (principal) | CPT/HCPCS: 84403; G0103 ==

== ENCOUNTER → 2017-07-03 | Outpatient (REF) | payer BC ==
[2017-07-03 12:28] LABS: BASO # 0.1 10^3/uL (0.0-0.2); BASO % 0.9 % (0.0-1.0); EOS # 0.3 10^3/uL (0.0-0.50); EOS % 4.9 % (0.0-3.0); IMMATURE GRANULOCYTE % 0.4 % (0-0); LYMPH # 1.1 10^3/uL (1.5-4.5); LYMPH % 19.2 % (24.0-44.0); MEAN CORPUSCULAR HEMOGLOBIN 31.1 pg (27.0-33.0); MEAN CORPUSCULAR HGB CONC 33.3 g/dl (32.0-36.5); MEAN CORPUSCULAR VOLUME 93.4 fl (80.0-96.0); MONO # 0.5 10^3/uL (0.0-0.8); MONO % 9.8 % (0.0-5.0); NEUTROPHILS # 3.6 10^3/uL (1.8-7.7); NEUTROPHILS % 64.8 % (36.0-66.0); PLATELET COUNT, AUTOMATED 277 10^3/uL (150-450); RED CELL DISTRIBUTION WIDTH 12.5 % (11.5-14.5); WHITE BLOOD COUNT 5.5 10^3/uL (4.0-10.0)
[2017-07-03 12:39] LABS: ALBUMIN 3.7 GM/DL (3.2-5.2); ALBUMIN/GLOBULIN RATIO 1.48 (1.00-1.93); ALKALINE PHOSPHATASE 53 U/L (45-117); ALT/SGPT 19 U/L (12-78); ANION GAP 6 MEQ/L (8-16); AST/SGOT 18 U/L (15-37); BILIRUBIN,TOTAL 0.5 MG/DL (0.2-1.0); BLOOD UREA NITROGEN 20 MG/DL (7-18); CALCIUM LEVEL 9.6 MG/DL (8.8-10.2); CARBON DIOXIDE LEVEL 30 MEQ/L (21-32); CHLORIDE LEVEL 103 MEQ/L (98-107); CHOLESTEROL LEVEL 169 MG/DL (<200); CREATININE FOR GFR 0.73 MG/DL (0.70-1.30); GLOMERULAR FILTRATION RATE > 60.0 (>49); GLUCOSE, FASTING 133 MG/DL (80-110); POTASSIUM SERUM 4.4 MEQ/L (3.5-5.1); SODIUM LEVEL 139 MEQ/L (136-145); TOTAL PROTEIN 6.2 GM/DL (6.4-8.2); TRIGLYCERIDES LEVEL 91 MG/DL (<150)
[2017-07-05 00:08] LABS: Lyme Disease IgG/IgM Antibodie <0.91 ISR (0.00-0.90); Lyme Disease IgM Ab Quantitati <0.80 index (0.00-0.79)
== END ==
LOC: M SFHCPLAZ 08:17
PROVIDERS: ATTEND Nurse Practitioner Family
DX: D64.9 Anemia, unspecified (principal); I10 Essential (primary) hypertension; R73.09 Other abnormal glucose; E78.4 Other hyperlipidemia

== ENCOUNTER → 2017-07-08 | Outpatient (REF) | payer BC ==
[2017-07-08 12:58] LABS: PERCENT SATURATION 36.2 % (19.7-50.0)
[2017-07-08 13:00] LABS: BASO % 0.5 % (0.0-1.0); EOS # 0.2 10^3/uL (0.0-0.50); EOS % 3.4 % (0.0-3.0); IMMATURE GRANULOCYTE % 0.3 % (0-0); LYMPH % 16.2 % (24.0-44.0); MEAN CORPUSCULAR HEMOGLOBIN 31.3 pg (27.0-33.0); MEAN CORPUSCULAR HGB CONC 33.4 g/dl (32.0-36.5); MEAN CORPUSCULAR VOLUME 93.5 fl (80.0-96.0); MONO # 0.6 10^3/uL (0.0-0.8); MONO % 8.8 % (0.0-5.0); NEUTROPHILS # 4.4 10^3/uL (1.8-7.7); NEUTROPHILS % 70.8 % (36.0-66.0); PLATELET COUNT, AUTOMATED 304 10^3/uL (150-450); RED CELL DISTRIBUTION WIDTH 12.6 % (11.5-14.5); RETIC HEMOGLOBIN EQUIVALENT 38.6 pg (24-36); RETICULOCYTE % 1.3 % (0.5-1.5); WHITE BLOOD COUNT 6.2 10^3/uL (4.0-10.0)
== END ==
LOC: M SFHCPLAZ 10:45
PROVIDERS: ATTEND Nurse Practitioner Family
DX: D64.9 Anemia, unspecified (principal)

== ENCOUNTER → 2017-07-08 | Outpatient (CLI) | payer BC ==
--- NOTE | 2017-07-09 02:59 | REP ---
Clinical: Pain. Technique: Internal rotation, external rotation, and Y view of the right shoulder. Findings: Joint space narrowing, cortical irregularity, and inferior spurring at the humeral joint is appreciated along with very subtle inferior spurring at the acromioclavicular joint. Subacromial space is normal. No free periarticular calcifications are identified. 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 Signed by Ibrahima Roldan MD 07/09/2017 02:50 A
== END ==
LOC: M LAB 10:08
PROVIDERS: ATTEND Nurse Practitioner Family
DX: M25.511 Pain in right shoulder (principal)

== ENCOUNTER 2017-08-19 10:04 | Outpatient (RCR) | payer BC | END 2017-08-22 | LOC: M PT 10:04 | PROVIDERS: ATTEND Nurse Practitioner Family | DX: M25.511 Pain in right shoulder (principal) ==

== ENCOUNTER 2017-08-26 07:26 | Outpatient (RCR) | payer BC | END 2017-09-22 | LOC: M PT 07:26 | DX: Z51.89 Encounter for other specified aftercare (principal); M25.511 Pain in right shoulder | CPT/HCPCS: 97110 ==

== ENCOUNTER 2017-09-25 07:55 | Outpatient (RCR) | payer BC | END 2017-10-23 | LOC: M PT 07:55 | DX: Z51.89 Encounter for other specified aftercare (principal); M25.511 Pain in right shoulder ==

== ENCOUNTER → 2017-10-24 | Outpatient (CLI) | payer BC ==
[2017-10-24 14:22] LABS: PROSTATIC SPECIFIC AG MONITOR 0.01 NG/ML (< 4.0)
[2017-10-24 14:27] LABS: TESTOSTERONE 16 NG/DL (241-827)
== END ==
LOC: M WUC 09:21
DX: C61 Malignant neoplasm of prostate (principal)
CPT/HCPCS: 84403

== ENCOUNTER → 2018-01-17 | Outpatient (CLI) | payer BC ==
[2018-01-17 13:16] LABS: PROSTATIC SPECIFIC AG MONITOR < 0.01 NG/ML (< 4.0)
== END ==
LOC: M WUC 10:06
DX: C61 Malignant neoplasm of prostate (principal)
CPT/HCPCS: 84153

== ENCOUNTER → 2018-01-21 | Outpatient (CLI) | payer BC ==
[2018-01-21 12:56] LABS: ALBUMIN/GLOBULIN RATIO 1.38 (1.00-1.93); ALKALINE PHOSPHATASE 63 U/L (45-117); ALT/SGPT 13 U/L (12-78); ANION GAP 4 MEQ/L (8-16); AST/SGOT 17 U/L (7-37); BILIRUBIN,TOTAL 0.6 MG/DL (0.2-1.0); BLOOD UREA NITROGEN 18 MG/DL (7-18); CALCIUM LEVEL 9.3 MG/DL (8.8-10.2); CARBON DIOXIDE LEVEL 30 MEQ/L (21-32); CHLORIDE LEVEL 106 MEQ/L (98-107); CREATININE FOR GFR 0.88 MG/DL (0.70-1.30); GLOMERULAR FILTRATION RATE > 60.0 (>49); GLUCOSE, FASTING 105 MG/DL (70-100); POTASSIUM SERUM 4.9 MEQ/L (3.5-5.1); SODIUM LEVEL 140 MEQ/L (136-145); TOTAL PROTEIN 6.9 GM/DL (6.4-8.2)
[2018-01-21 13:50] LABS: ESTIMATED AVERAGE GLUCOSE 143 MG/DL (60-110); HEMOGLOBIN A1c 6.6 %
== END ==
LOC: M WUC 08:33
DX: I10 Essential (primary) hypertension (principal); R73.01 Impaired fasting glucose

== ENCOUNTER → 2018-05-05 | Outpatient (CLI) | payer BC ==
[2018-05-05 17:53] LABS: TESTOSTERONE 10 NG/DL (241-827)
[2018-05-05 17:59] LABS: PROSTATIC SPECIFIC AG MONITOR < 0.01 NG/ML (< 4.0)
== END ==
LOC: M WUC 11:40
DX: C61 Malignant neoplasm of prostate (principal)
CPT/HCPCS: 84403

== ENCOUNTER → 2018-07-21 | Outpatient (CLI) | payer BC ==
[2018-07-21 09:56] LABS: HEMATOCRIT 39.9 % (42.0-52.0); HEMOGLOBIN 13.1 g/dl (13.5-17.5); MEAN CORPUSCULAR HEMOGLOBIN 30.5 pg (27.0-33.0); MEAN CORPUSCULAR HGB CONC 32.8 g/dl (32.0-36.5); MEAN CORPUSCULAR VOLUME 92.8 fl (80.0-96.0); PLATELET COUNT, AUTOMATED 304 10^3/uL (150-450); RED CELL DISTRIBUTION WIDTH 12.3 % (11.5-14.5); WHITE BLOOD COUNT 6.9 10^3/uL (4.0-10.0)
[2018-07-21 10:26] LABS: ALBUMIN 3.6 GM/DL (3.2-5.2); ALBUMIN/GLOBULIN RATIO 1.29 (1.00-1.93); ALKALINE PHOSPHATASE 71 U/L (45-117); ALT/SGPT 14 U/L (12-78); ANION GAP 7 MEQ/L (8-16); AST/SGOT 16 U/L (7-37); BILIRUBIN,TOTAL 0.4 MG/DL (0.2-1.0); BLOOD UREA NITROGEN 23 MG/DL (7-18); CALCIUM LEVEL 9.1 MG/DL (8.8-10.2); CARBON DIOXIDE LEVEL 27 MEQ/L (21-32); CHLORIDE LEVEL 107 MEQ/L (98-107); CHOLESTEROL LEVEL 168 MG/DL (<200); CHOLESTEROL RISK RATIO 3.574 (<5); CREATININE FOR GFR 0.78 MG/DL (0.70-1.30); GLOMERULAR FILTRATION RATE > 60.0 (>49); GLUCOSE, FASTING 136 MG/DL (70-100); HDL CHOLESTEROL 47 MG/DL (>40); LDL CHOLESTEROL 95 MG/DL (<100); NON-HDL-C 121 MG/DL; POTASSIUM SERUM 4.7 MEQ/L (3.5-5.1); SODIUM LEVEL 141 MEQ/L (136-145); TOTAL PROTEIN 6.4 GM/DL (6.4-8.2); TRIGLYCERIDES LEVEL 131 MG/DL (<150)
[2018-07-21 10:31] LABS: CREATININE, URINE 40.8 MG/DL; MALB URINE SIEMENS 5.2 MG/L
[2018-07-21 10:35] LABS: MAU/CREAT RATIO 12.8 MCG/MG (0.0-30.0)
[2018-07-21 10:36] LABS: ESTIMATED AVERAGE GLUCOSE 169 MG/DL (60-110); HEMOGLOBIN A1c 7.5 %
== END ==
LOC: M WUC 08:15
DX: I10 Essential (primary) hypertension (principal); R73.01 Impaired fasting glucose; E78.49 Other hyperlipidemia
CPT/HCPCS: 80053

== ENCOUNTER → 2018-10-30 | Outpatient (CLI) | payer BC | LOC: M WUC 09:16 | PROVIDERS: ATTEND Urology | DX: C61 Malignant neoplasm of prostate (principal) ==

== ENCOUNTER → 2018-10-30 | Outpatient (CLI) | payer BC ==
[2018-10-30 13:08] LABS: ALBUMIN 3.9 GM/DL (3.2-5.2); ALT/SGPT 13 U/L (12-78); BILIRUBIN,TOTAL 0.4 MG/DL (0.2-1.0); BLOOD UREA NITROGEN 17 MG/DL (7-18); CALCIUM LEVEL 9.1 MG/DL (8.8-10.2); CARBON DIOXIDE LEVEL 28 MEQ/L (21-32); CHLORIDE LEVEL 104 MEQ/L (98-107); CREATININE FOR GFR 0.75 MG/DL (0.70-1.30); GLOMERULAR FILTRATION RATE > 60.0 (>49); GLUCOSE, FASTING 126 MG/DL (70-100); POTASSIUM SERUM 4.5 MEQ/L (3.5-5.1); SODIUM LEVEL 137 MEQ/L (136-145); TOTAL PROTEIN 6.5 GM/DL (6.4-8.2)
[2018-10-30 13:29] LABS: HEMOGLOBIN A1c 6.8 %
== END ==
LOC: M WUC 09:20
PROVIDERS: ATTEND Nurse Practitioner Family
DX: I10 Essential (primary) hypertension (principal); E11.9 Type 2 diabetes mellitus without complications

== ENCOUNTER → 2019-05-04 | Outpatient (CLI) | payer BC ==
[2019-05-04 13:45] LABS: PROSTATIC SPECIFIC AG MONITOR < 0.01 NG/ML (< 4.00)
[2019-05-04 13:51] LABS: TESTOSTERONE 14 NG/DL (241-827)
== END ==
LOC: M WUC 09:16
PROVIDERS: ATTEND Chiropractor Rehabilitation
DX: C61 Malignant neoplasm of prostate (principal)

== ENCOUNTER → 2019-08-25 | Outpatient (CLI) | payer BC ==
[2019-08-25 15:28] LABS: ALBUMIN 3.9 GM/DL (3.2-5.2); ALT/SGPT 25 U/L (12-78); BILIRUBIN,TOTAL 0.6 MG/DL (0.2-1.0); BLOOD UREA NITROGEN 12 MG/DL (7-18); CALCIUM LEVEL 9.1 MG/DL (8.8-10.2); CARBON DIOXIDE LEVEL 27 MEQ/L (21-32); CHLORIDE LEVEL 106 MEQ/L (98-107); CREATININE FOR GFR 0.88 MG/DL (0.70-1.30); GLOMERULAR FILTRATION RATE > 60.0 (>49); GLUCOSE, FASTING 114 MG/DL (70-100); POTASSIUM SERUM 4.1 MEQ/L (3.5-5.1); SODIUM LEVEL 139 MEQ/L (136-145)
[2019-08-25 15:50] LABS: HEMOGLOBIN A1c 6.3 %
== END ==
LOC: M WUC 09:21
PROVIDERS: ATTEND Nurse Practitioner Family
DX: I10 Essential (primary) hypertension (principal); E78.49 Other hyperlipidemia; E11.9 Type 2 diabetes mellitus without complications

== ENCOUNTER 2019-11-03 06:46 | Day surgery (SDC) | payer BC ==
[~2019-11-03] VITALS: Ht 182.9 cm; Wt 89.4 kg
[~2019-11-03 06:46] MED LIST: CALCTAB41 PO; FLUTISP NS; L-LY500T14 PO; LOVA1CAP17 PO; METF500T13 PO; MYRB25TA PO; NS 1,000 ML IV ONE; TAMS1CAP17 PO
[2019-11-03] MEDS ORDERED: LIDOCAINE 2% INJ 100 MG/5 ML SDV (FOR ANES.) As Ordered ONE (07:17)
[2019-11-03] MEDS ORDERED: propofoL 200 MG/20 ML VIAL As Ordered ONE ×2 (08:00→08:01)
[2019-11-03 08:20] VITALS: BP 121/71
--- NOTE | 2019-11-03 08:54 | ROOR ---
Patient Name: Arcadio Corley Procedure Date: 11/03/2019 7:31 AM Date of : 1950 Age: 69 Room: [facility] Gender: Male Note Status: Finalized Procedure: Colonoscopy Indications: High risk colon cancer surveillance: Personal history of colonic polyps, Last colonoscopy 5 years ago Providers: Jeff Dozier MD Referring MD: Millie Rice MD Requesting Provider: Medicines: Monitored Anesthesia Care Complications: No immediate complications. Procedure: Pre-Anesthesia Assessment: - Prior to the procedure, a History and Physical was performed, and patient medications and allergies were reviewed. The patient is competent. The risks and benefits of the procedure and the sedation options and risks were discussed with the patient. All questions were answered and informed consent was obtained. Patient identification and proposed procedure were verified by the physician, the nurse and the anesthesiologist in the procedure room. Mental Status Examination: alert and oriented. Airway Examination: normal oropharyngeal airway and neck mobility. Prophylactic Antibiotics: The patient does not require prophylactic antibiotics. Prior Anticoagulants: The patient has taken no previous anticoagulant or antiplatelet agents. ASA Grade Assessment: III - A patient with severe systemic disease. After reviewing the risks and benefits, the patient was deemed in satisfactory condition to undergo the procedure. The anesthesia plan was to use monitored anesthesia care (MAC). Immediately prior to administration of medications, the patient was re-assessed for adequacy to receive sedatives. The heart rate, respiratory rate, oxygen saturations, blood pressure, adequacy of pulmonary ventilation, and response to care were monitored throughout the procedure. The physical status of the patient was re-assessed after the procedure. The Colonoscope was introduced through the anus and advanced to the cecum, identified by appendiceal orifice and ileocecal valve. The colonoscopy was performed without difficulty. The patient tolerated the procedure well. The quality of the bowel preparation was excellent. Findings: Hemorrhoids were found on perianal exam. There was one prominent fibrotic tag at the anal verge. The colon (entire examined portion) appeared normal. A diffuse area of mildly erythematous mucosa was found in the distal rectum. There were some telangiectasias seen. The appearance was consistent with an area of prior radiation. Impression: - Hemorrhoids found on perianal exam. - The entire examined colon is normal. - Erythematous mucosa in the distal rectum. - No specimens collected. Recommendation: - Discharge patient to home. - Resume previous diet. - Continue present medications. - Repeat colonoscopy in 5 years for surveillance. Jeff Dozier MD Jeff Dozier MD 11/03/2019 8:54:11 AM Electronically signed by Jeff Dozier MD Number of Addenda: 0 Note Initiated On: 11/03/2019 7:31 AM Estimated Blood Loss: Estimated blood loss: none.
== END 2019-11-03 08:50 | disposition home or self-care (01) ==
LOC: M OPP 06:46
PROVIDERS: ATTEND Surgery
DX: Z12.11 Encounter for screening for malignant neoplasm of colon (principal); Z86.010 Personal history of colon polyps; K64.9 Unspecified hemorrhoids; K62.89 Other specified diseases of anus and rectum; E11.9 Type 2 diabetes mellitus without complications; I10 Essential (primary) hypertension; E78.5 Hyperlipidemia, unspecified; Z79.84 Long term (current) use of oral hypoglycemic drugs; Z79.2 Long term (current) use of antibiotics; Z79.899 Other long term (current) drug therapy

== ENCOUNTER → 2019-11-06 | Outpatient (CLI) | payer BC ==
[~2019-11-06] MED LIST changes: -NS 1,000 ML IV ONE
[2019-11-06 17:02] LABS: TESTOSTERONE 36 NG/DL (241-827)
== END ==
LOC: M WUC 14:26
PROVIDERS: ATTEND Urology
DX: C61 Malignant neoplasm of prostate (principal)
CPT/HCPCS: 36415; 84403; G0103

== ENCOUNTER → 2020-02-24 | Outpatient (CLI) | payer BC ==
[2020-02-24 13:05] LABS: BLOOD UREA NITROGEN 16 MG/DL (7-18); CALCIUM LEVEL 9.2 MG/DL (8.8-10.2); CARBON DIOXIDE LEVEL 24 MEQ/L (21-32); CHLORIDE LEVEL 106 MEQ/L (98-107); CREATININE FOR GFR 0.87 MG/DL (0.70-1.30); GLOMERULAR FILTRATION RATE > 60.0 (>49); GLUCOSE, FASTING 127 MG/DL (70-100); POTASSIUM SERUM 4.2 MEQ/L (3.5-5.1); SODIUM LEVEL 140 MEQ/L (136-145)
[2020-02-24 13:36] LABS: CREATININE, URINE 38.8 MG/DL; MALB URINE SIEMENS < 5.0 MG/L; MAU/CREAT RATIO 12.8 MCG/MG (0.0-30.0)
[2020-02-24 14:11] LABS: HEMOGLOBIN A1c 6.7 %
== END ==
LOC: M WUC 09:55
PROVIDERS: ATTEND Family Medicine
DX: E11.9 Type 2 diabetes mellitus without complications (principal); I10 Essential (primary) hypertension

== ENCOUNTER → 2020-08-08 | Outpatient (CLI) | payer BC ==
[2020-08-08 10:42] LABS: PROSTATIC SPECIFIC AG MONITOR 0.03 NG/ML (< 4.00)
== END ==
LOC: M WUC 08:51
PROVIDERS: ATTEND Radiology Therapeutic Radiology
DX: C61 Malignant neoplasm of prostate (principal)

== ENCOUNTER → 2020-08-29 | Outpatient (CLI) | payer BC ==
[2020-08-29 12:31] LABS: ALBUMIN 3.9 GM/DL (3.2-5.2); ALT/SGPT 16 U/L (12-78); BILIRUBIN,TOTAL 0.5 MG/DL (0.2-1.0); BLOOD UREA NITROGEN 16 MG/DL (7-18); CALCIUM LEVEL 9.8 MG/DL (8.8-10.2); CARBON DIOXIDE LEVEL 29 MEQ/L (21-32); CHLORIDE LEVEL 106 MEQ/L (98-107); CHOLESTEROL LEVEL 270 MG/DL (<200); CREATININE FOR GFR 0.91 MG/DL (0.70-1.30); GLOMERULAR FILTRATION RATE > 60.0 (>49); GLUCOSE, FASTING 107 MG/DL (70-100); HDL CHOLESTEROL 45 MG/DL (>40); LDL CHOLESTEROL 196 MG/DL (<100); NON-HDL-C 225 MG/DL; POTASSIUM SERUM 4.2 MEQ/L (3.5-5.1); SODIUM LEVEL 138 MEQ/L (136-145); TOTAL PROTEIN 6.7 GM/DL (6.4-8.2); TRIGLYCERIDES LEVEL 143 MG/DL (<150)
[2020-08-29 12:42] LABS: HEMOGLOBIN A1c 6.3 %
== END ==
LOC: M WUC 08:56
PROVIDERS: ATTEND Family Medicine
DX: E11.9 Type 2 diabetes mellitus without complications (principal); E78.2 Mixed hyperlipidemia; I10 Essential (primary) hypertension

== ENCOUNTER → 2020-10-02 | Outpatient (CLI) | payer SELFPAY | LOC: M LABSMTC 11:03 | PROVIDERS: ATTEND Pediatrics | DX: Z20.822 Contact with and (suspected) exposure to COVID-19 (principal) ==

== ENCOUNTER → 2021-01-09 | Outpatient (CLI) | payer BC | LOC: M WUC 10:45 | PROVIDERS: ATTEND Urology | DX: Z85.46 Personal history of malignant neoplasm of prostate (principal); C61 Malignant neoplasm of prostate ==

== ENCOUNTER → 2021-02-24 | Outpatient (CLI) | payer BC ==
[2021-02-24 10:39] LABS: HEMOGLOBIN A1c 6.1 %
[2021-02-24 10:50] LABS: BLOOD UREA NITROGEN 19 MG/DL (7-18); CALCIUM LEVEL 9.5 MG/DL (8.8-10.2); CARBON DIOXIDE LEVEL 28 MEQ/L (21-32); CHLORIDE LEVEL 105 MEQ/L (98-107); GLOMERULAR FILTRATION RATE > 60.0 (>49); GLUCOSE, FASTING 120 MG/DL (70-100); POTASSIUM SERUM 4.3 MEQ/L (3.5-5.1); SODIUM LEVEL 138 MEQ/L (136-145)
[2021-02-24 11:03] LABS: MALB URINE SIEMENS 20.4 MG/L; MAU/CREAT RATIO 16.3 MCG/MG (0.0-30.0)
== END ==
LOC: M WUC 08:30
PROVIDERS: ATTEND Family Medicine
DX: E11.9 Type 2 diabetes mellitus without complications (principal); I10 Essential (primary) hypertension

== ENCOUNTER → 2021-07-11 | Outpatient (CLI) | payer BC ==
[2021-07-11 20:21] LABS: PROSTATIC SPECIFIC AG MONITOR 0.16 NG/ML (< 4.00)
== END ==
LOC: M WUC 15:35
PROVIDERS: ATTEND Urology
DX: Z85.46 Personal history of malignant neoplasm of prostate (principal)

== ENCOUNTER → 2021-10-31 | Outpatient (CLI) | payer BC ==
[2021-10-31 13:58] LABS: BLOOD UREA NITROGEN 15 MG/DL (7-18); CALCIUM LEVEL 9.7 MG/DL (8.8-10.2); CARBON DIOXIDE LEVEL 29 MEQ/L (21-32); CHLORIDE LEVEL 106 MEQ/L (98-107); CHOLESTEROL LEVEL 312 MG/DL (<200); CREATININE FOR GFR 0.86 MG/DL (0.70-1.30); GLOMERULAR FILTRATION RATE > 60.0 (>49); GLUCOSE, FASTING 111 MG/DL (70-100); HDL CHOLESTEROL 50 MG/DL (>40); LDL CHOLESTEROL 240 MG/DL (<100); NON-HDL-C 262 MG/DL; POTASSIUM SERUM 4.6 MEQ/L (3.5-5.1); SODIUM LEVEL 141 MEQ/L (136-145); TRIGLYCERIDES LEVEL 110 MG/DL (<150)
[2021-10-31 14:09] LABS: HEMOGLOBIN A1c 6.2 %
== END ==
LOC: M PLALAB 10:27
PROVIDERS: ATTEND Family Medicine
DX: E78.2 Mixed hyperlipidemia (principal)

== ENCOUNTER → 2021-12-06 | Outpatient (REF) | payer BC ==
[2021-12-11 18:07] LABS: PSA TOTAL 0.1 ng/mL (0.0-4.0)
[2021-12-15 10:14] LABS: PROSTATIC SPECIFIC AG MONITOR 0.1 NG/ML (0.0-4.0)
== END ==
LOC: M WUC 12:07
PROVIDERS: ATTEND Urology
DX: C61 Malignant neoplasm of prostate (principal); R39.15 Urgency of urination

== ENCOUNTER → 2022-05-07 | Outpatient (CLI) | payer BC ==
[2022-05-07 12:38] LABS: BASO % 0.5 % (0.0-1.0); EOS # 0.1 10^3/uL (0.0-0.5); EOS % 2.2 % (0.0-3.0); HEMATOCRIT 42.3 % (42.0-52.0); LYMPH # 1.5 10^3/uL (1.5-5.0); LYMPH % 25.5 % (24.0-44.0); MEAN CORPUSCULAR HEMOGLOBIN 30.4 pg (27.0-33.0); MEAN CORPUSCULAR HGB CONC 33.1 g/dl (32.0-36.5); MEAN CORPUSCULAR VOLUME 91.8 fl (80.0-96.0); MONO # 0.6 10^3/uL (0.0-0.8); MONO % 10.5 % (2.0-8.0); NEUTROPHILS # 3.6 10^3/uL (1.5-8.5); PLATELET COUNT, AUTOMATED 284 10^3/uL (150-450); RED BLOOD COUNT 4.61 10^6/uL (4.30-6.10); WHITE BLOOD COUNT 5.9 10^3/uL (4.0-10.0)
[2022-05-07 13:12] LABS: ALBUMIN 3.6 GM/DL (3.2-5.2); ALT/SGPT 16 U/L (12-78); BILIRUBIN,TOTAL 0.7 MG/DL (0.2-1.0); BLOOD UREA NITROGEN 14 MG/DL (7-18); CALCIUM LEVEL 9.1 MG/DL (8.8-10.2); CARBON DIOXIDE LEVEL 29 MEQ/L (21-32); CHLORIDE LEVEL 107 MEQ/L (98-107); CHOLESTEROL LEVEL 172 MG/DL (<200); CHOLESTEROL RISK RATIO 3.307 (<5); CREATININE FOR GFR 0.83 MG/DL (0.70-1.30); GLOMERULAR FILTRATION RATE > 60.0 (>49); GLUCOSE, FASTING 117 MG/DL (70-100); HDL CHOLESTEROL 52 MG/DL (>40); LDL CHOLESTEROL 103 MG/DL (<100); NON-HDL-C 120 MG/DL; SODIUM LEVEL 140 MEQ/L (136-145); TOTAL PROTEIN 6.4 GM/DL (6.4-8.2); TRIGLYCERIDES LEVEL 85 MG/DL (<150)
== END ==
LOC: M WUC 09:10
PROVIDERS: ATTEND Family Medicine
DX: E78.2 Mixed hyperlipidemia (principal); E11.9 Type 2 diabetes mellitus without complications

== ENCOUNTER → 2022-06-18 | Outpatient (CLI) | payer BC ==
[2022-06-18 15:00] LABS: ALBUMIN 3.5 GM/DL (3.2-5.2); ALT/SGPT 17 U/L (12-78); BILIRUBIN,TOTAL 0.5 MG/DL (0.2-1.0); BLOOD UREA NITROGEN 19 MG/DL (7-18); CALCIUM LEVEL 8.9 MG/DL (8.8-10.2); CARBON DIOXIDE LEVEL 26 MEQ/L (21-32); CHLORIDE LEVEL 105 MEQ/L (98-107); CREATININE FOR GFR 0.85 MG/DL (0.70-1.30); GLOMERULAR FILTRATION RATE > 60.0 (>49); GLUCOSE, FASTING 100 MG/DL (70-100); POTASSIUM SERUM 4.4 MEQ/L (3.5-5.1); SODIUM LEVEL 138 MEQ/L (136-145); TOTAL PROTEIN 6.6 GM/DL (6.4-8.2)
[2022-06-19 21:07] LABS: PSA TOTAL 0.1 ng/mL (0.0-4.0); TESTOSTERONE FREE (DIRECT) 4.6 pg/mL (6.6-18.1)
== END ==
LOC: M WUC 10:13
PROVIDERS: ATTEND Urology
DX: C61 Malignant neoplasm of prostate (principal)

== ENCOUNTER → 2022-12-14 | Outpatient (CLI) | payer BC ==
[2022-12-14 14:47] LABS: PROSTATIC SPECIFIC AG MONITOR 0.13 NG/ML (< 4.00)
== END ==
LOC: M PLALAB 11:46
PROVIDERS: ATTEND Urology
DX: C61 Malignant neoplasm of prostate (principal)

== ENCOUNTER → 2023-05-16 | Outpatient (CLI) | payer BC ==
[~2023-05-16] MED LIST changes: +FLUT50SP17 NS; -FLUTISP NS
[2023-05-16 15:05] LABS: BASO % 0.4 % (0.0-1.0); EOS # 0.2 10^3/uL (0.0-0.5); EOS % 2.1 % (0.0-3.0); HEMATOCRIT 42.9 % (42.0-52.0); HEMOGLOBIN 14.2 g/dl (13.5-17.5); LYMPH # 1.6 10^3/uL (1.5-5.0); LYMPH % 22.8 % (24.0-44.0); MEAN CORPUSCULAR HEMOGLOBIN 30.1 pg (27.0-33.0); MEAN CORPUSCULAR HGB CONC 33.1 g/dl (32.0-36.5); MEAN CORPUSCULAR VOLUME 91.1 fl (80.0-96.0); MONO # 0.7 10^3/uL (0.0-0.8); MONO % 9.5 % (2.0-8.0); NEUTROPHILS # 4.6 10^3/uL (1.5-8.5); NEUTROPHILS % 64.9 % (36.0-66.0); PLATELET COUNT, AUTOMATED 318 10^3/uL (150-450); RED BLOOD COUNT 4.71 10^6/uL (4.30-6.10); WHITE BLOOD COUNT 7.1 10^3/uL (4.0-10.0)
[2023-05-16 15:11] LABS: ALBUMIN 3.7 G/DL (3.2-5.2); ALKALINE PHOSPHATASE 54 U/L (46-116); ALT/SGPT < 9 U/L (7.0-40); AST/SGOT 11 U/L (<34); BILIRUBIN,TOTAL 0.7 MG/DL (0.3-1.2); BLOOD UREA NITROGEN 17 MG/DL (9-23); CALCIUM LEVEL 9.9 MG/DL (8.3-10.6); CARBON DIOXIDE LEVEL 30 MMOL/L (20-31); CHLORIDE LEVEL 106 MMOL/L (98-107); CHOLESTEROL LEVEL 152 MG/DL (<200); CHOLESTEROL RISK RATIO 3.47 (<5); CREATININE FOR GFR 0.86 MG/DL (0.70-1.30); GLOMERULAR FILTRATION RATE > 60.0 (>42); GLUCOSE, FASTING 129 MG/DL (74-106); HDL CHOLESTEROL 43.7 MG/DL (>40); LDL CHOLESTEROL 81.9 MG/DL (<100); NON-HDL-C 108.3 MG/DL; POTASSIUM SERUM 4.2 MMOL/L (3.5-5.1); SODIUM LEVEL 141 MMOL/L (136-145); THYROID STIMULATING HORMONE 3.067 uIU/ML (0.55-4.78); TOTAL 25(OH) VITAMIN D 43.1 NG/ML (20.0-100.0); TOTAL PROTEIN 6.3 G/DL (5.7-8.2); TRIGLYCERIDES LEVEL 132 MG/DL (<150)
[2023-05-16 15:24] LABS: HEMOGLOBIN A1c 6.7 % (4.0-6.0)
== END ==
LOC: M PLALAB 09:56
PROVIDERS: ATTEND Physician Assistant
DX: E11.9 Type 2 diabetes mellitus without complications (principal); I10 Essential (primary) hypertension; E78.2 Mixed hyperlipidemia; E55.9 Vitamin D deficiency, unspecified

== ENCOUNTER → 2023-05-16 | Outpatient (CLI) | payer BC ==
[2023-05-16 15:07] LABS: PROSTATIC SPECIFIC AG MONITOR 0.11 NG/ML (< 4.00)
== END ==
LOC: M PLALAB 09:54
PROVIDERS: ATTEND Urology
DX: C61 Malignant neoplasm of prostate (principal)

== ENCOUNTER → 2023-11-05 | Outpatient (CLI) | payer BC ==
[~2023-11-05] MED LIST changes: -FLUT50SP17 NS; +FLUTISP NS
[2023-11-05 14:35] LABS: BASO % 0.3 % (0.0-1.0); EOS # 0.1 10^3/uL (0.0-0.5); EOS % 1.1 % (0.0-3.0); HEMATOCRIT 45.9 % (42.0-52.0); HEMOGLOBIN 15.1 g/dl (13.5-17.5); LYMPH # 2.1 10^3/uL (1.5-5.0); LYMPH % 22.2 % (24.0-44.0); MEAN CORPUSCULAR HEMOGLOBIN 29.7 pg (27.0-33.0); MEAN CORPUSCULAR HGB CONC 32.9 g/dl (32.0-36.5); MEAN CORPUSCULAR VOLUME 90.2 fl (80.0-96.0); MONO # 0.7 10^3/uL (0.0-0.8); MONO % 7.5 % (2.0-8.0); NEUTROPHILS # 6.4 10^3/uL (1.5-8.5); NEUTROPHILS % 68.5 % (36.0-66.0); PLATELET COUNT, AUTOMATED 324 10^3/uL (150-450); RED BLOOD COUNT 5.09 10^6/uL (4.30-6.10); WHITE BLOOD COUNT 9.3 10^3/uL (4.0-10.0)
[2023-11-05 14:58] LABS: HEMOGLOBIN A1c 6.2 % (4.0-6.0)
[2023-11-05 15:08] LABS: ALBUMIN 3.9 G/DL (3.2-5.2); ALKALINE PHOSPHATASE 59 U/L (46-116); ALT/SGPT 12 U/L (7.0-40); AST/SGOT 15 U/L (<34); BILIRUBIN,TOTAL 0.6 MG/DL (0.3-1.2); BLOOD UREA NITROGEN 16 MG/DL (9-23); CARBON DIOXIDE LEVEL 30 MMOL/L (20-31); CHLORIDE LEVEL 106 MMOL/L (98-107); CHOLESTEROL LEVEL 183 MG/DL (<200); CHOLESTEROL RISK RATIO 3.94 (<5); CREATININE FOR GFR 0.83 MG/DL (0.70-1.30); GLOMERULAR FILTRATION RATE > 60.0 (>42); GLUCOSE, FASTING 101 MG/DL (74-106); HDL CHOLESTEROL 46.4 MG/DL (>40); LDL CHOLESTEROL 112.4 MG/DL (<100); NON-HDL-C 136.6 MG/DL; POTASSIUM SERUM 4.3 MMOL/L (3.5-5.1); SODIUM LEVEL 139 MMOL/L (136-145); TOTAL PROTEIN 6.6 G/DL (5.7-8.2); TRIGLYCERIDES LEVEL 121 MG/DL (<150)
[2023-11-05 15:10] LABS: TOTAL 25(OH) VITAMIN D 53.3 NG/ML (20.0-100.0)
== END ==
LOC: M PLALAB 11:26
PROVIDERS: ATTEND Physician Assistant
DX: E55.9 Vitamin D deficiency, unspecified (principal); E11.9 Type 2 diabetes mellitus without complications; E78.2 Mixed hyperlipidemia; I10 Essential (primary) hypertension

== ENCOUNTER → 2023-12-05 | Outpatient (REF) | payer BC ==
[2023-12-05 15:18] LABS: PROSTATIC SPECIFIC AG MONITOR 0.13 NG/ML (< 4.00)
== END ==
LOC: M LABWUC 12:13
PROVIDERS: ATTEND Nurse Practitioner Family
DX: C61 Malignant neoplasm of prostate (principal)

== ENCOUNTER → 2024-10-02 | Outpatient (REF) | payer BC | LOC: M SFHCPLAZ 16:34 | DX: I10 Essential (primary) hypertension (principal); C61 Malignant neoplasm of prostate; E78.2 Mixed hyperlipidemia; E11.9 Type 2 diabetes mellitus without complications; Z53.9 Procedure and treatment not carried out, unspecified reason ==

== ENCOUNTER → 2024-10-07 | Outpatient (CLI) | payer BC ==
[2024-10-07 10:07] LABS: HEMATOCRIT 46.2 % (42.0-52.0); HEMOGLOBIN 15.1 g/dl (13.5-17.5); MEAN CORPUSCULAR HEMOGLOBIN 29.2 pg (27.0-33.0); MEAN CORPUSCULAR HGB CONC 32.7 g/dl (32.0-36.5); MEAN CORPUSCULAR VOLUME 89.4 fl (80.0-96.0); PLATELET COUNT, AUTOMATED 325 10^3/uL (150-450); RED BLOOD COUNT 5.17 10^6/uL (4.30-6.10); WHITE BLOOD COUNT 7.4 10^3/uL (4.0-10.0)
[2024-10-07 10:27] LABS: THYROID STIMULATING HORMONE 3.613 uIU/ML (0.55-4.78)
[2024-10-07 10:28] LABS: ALBUMIN 4.1 G/DL (3.2-5.2); ALKALINE PHOSPHATASE 71 U/L (40-129); ALT/SGPT 11 U/L (7.0-40); AST/SGOT 19 U/L (<34); BILIRUBIN,TOTAL 0.7 MG/DL (0.3-1.2); BLOOD UREA NITROGEN 17 MG/DL (9-23); CALCIUM LEVEL 9.3 MG/DL (8.3-10.6); CARBON DIOXIDE LEVEL 28 MMOL/L (20-31); CHLORIDE LEVEL 103 MMOL/L (98-107); CHOLESTEROL LEVEL 177 MG/DL (<200); CHOLESTEROL RISK RATIO 3.88 (<5); CREATININE FOR GFR 0.83 MG/DL (0.70-1.30); FREE T4 0.97 NG/DL (0.89-1.76); GLOMERULAR FILTRATION RATE > 60.0 (>42); GLUCOSE, FASTING 142 MG/DL (74-106); HDL CHOLESTEROL 45.6 MG/DL (>40); LDL CHOLESTEROL 96.4 MG/DL (<100); NON-HDL-C 131.4 MG/DL; POTASSIUM SERUM 4.3 MMOL/L (3.5-5.1); SODIUM LEVEL 141 MMOL/L (136-145); TOTAL PROTEIN 6.9 G/DL (5.7-8.2); TRIGLYCERIDES LEVEL 175 MG/DL (<150)
== END ==
LOC: M WUC 08:03
DX: C61 Malignant neoplasm of prostate (principal); I10 Essential (primary) hypertension; E78.2 Mixed hyperlipidemia

== ENCOUNTER → 2024-11-02 | Outpatient (CLI) | payer BC ==
[~2024-11-02] MED LIST changes: +E-Z-GAS II EFFERVESCENT PACKET (SODIUM BICARB./CITRIC ACID/SIMETHICONE) As Ordered ONE; +E-Z-HD 98% w/w 340GM SUSP BTL As Ordered ONE; +E-Z-PAQUE 96% w/w SUSP 176GM BTL As Ordered ONE
== END ==
LOC: M RAD 07:18
DX: K22.4 Dyskinesia of esophagus (principal); K44.9 Diaphragmatic hernia without obstruction or gangrene

== ENCOUNTER → 2024-12-08 | Outpatient (REF) | payer BC ==
[~2024-12-08] MED LIST changes: -E-Z-GAS II EFFERVESCENT PACKET (SODIUM BICARB./CITRIC ACID/SIMETHICONE) As Ordered ONE; -E-Z-HD 98% w/w 340GM SUSP BTL As Ordered ONE; -E-Z-PAQUE 96% w/w SUSP 176GM BTL As Ordered ONE
== END ==
LOC: M LAB REF 12:21 → M LABWUC 12:21
PROVIDERS: ATTEND Physician Assistant Medical
DX: Z85.46 Personal history of malignant neoplasm of prostate (principal)

== ENCOUNTER → 2025-03-25 | Outpatient (CLI) | payer BC | LOC: M RAD 13:00 | DX: I73.9 Peripheral vascular disease, unspecified (principal) ==